=== PATIENT | female | born 1940 | race Caucasian/White ===

== ENCOUNTER 2020-02-25 21:07 | Observation (INO) ==
[2020-02-25] MEDS ORDERED: ACETAMINOPHEN 325 MG TAB PO PRN (22:10)
[2020-02-25] MEDS ORDERED: ONDANSETRON INJ 2 MG/ML 2 ML VIAL IV PRN (22:10)
[2020-02-25] MEDS ORDERED: POLYETHYLENE (MIRALAX) 17 GM PACK PO PRN (22:10)
[2020-02-25] MEDS ORDERED: NITROGLYCERIN SL 0.4 MG/TAB TAB SL PRN (22:10)
[2020-02-25] MEDS: XYZAL~ORDER AWAITING ACTION SCH (22:51)
--- NOTE | 2020-02-25 23:41 | History and Physical Report ---
DATE OF ADMISSION: 02/25/2020 CHIEF COMPLAINT: Bilateral shoulder pain relieved by nitro. HISTORY OF PRESENT ILLNESS: This is a 79-year-old female with past medical history significant for CAD, history of mitral valve repair, chronic kidney disease stage III, depression with anxiety, who went to [facility] today because she woke up with nausea and she also had bilateral shoulder pain. The patient was doing weeding a couple of days ago and yesterday she noticed some soreness in her bilateral shoulders and because of her symptoms of nausea and shoulder pain she was placed on nitro paste, which relieved the shoulder soreness. EKG was unremarkable. Two set of troponins were negative. She was also tested for COVID-19 because she is caring for her who recently had a procedure, and it came back negative, and patient was transferred here for cardiac evaluation. The shoulder soreness resolved with nitro paste. The patient says currently pain is resolved. Seems comfortable. Denies any other complaints. Denies any headache, no blurred vision, but says she uses glasses. No earache, no runny nose, no sore throat, no cough, no difficulty swallowing. No shortness of breath. Currently, no nausea, no abdominal pain. Says she has normal bowel and bladder movements. Denies any blood in the stools. No rash, no swelling in the legs. She says she does not sleep well. She is not eating well because her is on tube feeds and she does not feel like cooking food. She ambulates okay and without any support. ALLERGIES: CIPROFLOXACIN, NITROFURANTOIN, STATINS. PAST MEDICAL HISTORY: As mentioned above. PAST SURGICAL HISTORY: Bladder surgery, bladder sling repair, right ovary removed, mitral valve repair, removal of the bilateral cataract lens. MEDICATIONS: As per [facility]. The patient is on levocetirizine dihydrochloride 5 mg p.o. daily, losartan 50 mg p.o. daily, metoprolol succinate 50 mg p.o. daily, amoxicillin 2 grams 1 hour prior to dental procedures, fish oil 1000 mg p.o. b.i.d., magnesium 400 mg p.o. b.i.d., aspirin 81 mg p.o. daily. FAMILY HISTORY: Significant for brother had colon cancer, [place]; mother had brain tumor; daughter has diabetes. SOCIAL HISTORY: , lives with her . Former smoker, smoked 1 pack a day for 40 years. No alcohol use, no drug use. REVIEW OF SYSTEMS: As per HPI. Rest of review of systems negative. PHYSICAL EXAMINATION: GENERAL: The patient is old and frail, not in acute distress. VITAL SIGNS: Temperature 36.6, pulse 77, respiratory rate 18, blood pressure 178/79, oxygen 97% on room air. HEENT: No pallor, no icterus. Extraocular muscles intact. NECK: No JVD, no neck masses seen, supple. CARDIOVASCULAR: S1, S2 heard, regular rate and rhythm, no murmur, no gallop. RESPIRATORY SYSTEM: Normal AP diameter. No accessory muscle use. No wheezing, no crackles. ABDOMEN: Soft, bowel sounds present, nontender. No distention. CENTRAL NERVOUS SYSTEM: Cranial nerves II-XII grossly intact. Nonfocal. EXTREMITIES: No edema, no erythema. LABORATORY DATA: Labs done at [facility], influenza A and B negative, COVID-19 PCR negative. WBC 8.1, hemoglobin 15, hematocrit 47.7, platelets 205. Sodium 142, potassium 4.1, chloride 104, bicarbonate 31, BUN 8, creatinine 1.1, serum glucose 119, calcium 9.7, total bilirubin 0.4, AST 19, ALT 14, alkaline phosphatase 58, lipase 359, magnesium 2.1. Troponin 1 two sets less than 0.02. UA is unremarkable. EKG: Normal sinus, bradycardia at the rate of 53, no acute ST changes seen. ASSESSMENT AND PLAN: This is a 79-year-old female, who presents with questionable shoulder pain and chest pain. 1. Bilateral shoulder pain , relieved by nitro at [facility]. The patient says she did weeding a couple of days ago and that is why developed the soreness. She went to [facility] because she woke up with nausea.The EKG and troponins are negative. We will observe in tele floor. Serial enzymes, echocardiogram, and keep n.p.o. and consult cardiology in the a.m. for further recommendations. 2. Hypertension. Continue home Toprol-XL and losartan. 3. History of mitral valve repair. Follow echocardiogram. 4. Chronic kidney disease stage III. Baseline creatinine is 0.9. We will follow the labs. 5. Deep venous thrombosis prophylaxis, sequential compression devices. DISPOSITION: Observe in tele floor. PT and OT prior to discharge. Social service to help with discharge planning. Expect to discharge home and follow with family doctor. LIDIA
[2020-02-26 05:16] LABS: Basophils # (auto) 0.03 K/uL (0-0.2); Basophils % (auto) 0.5 %; Eosinophils # (auto) 0.14 K/uL (0-0.5); Eosinophils % (auto) 2.5 %; Hematocrit (blood only) 40.6 % (37-47); Hemoglobin 13.5 g/dL (12.0-16.0); Immature Granulocytes # (auto) 0.01 K/uL (0.00-0.02); Immature Granulocytes % (auto) 0.2 %; Lymphocytes # (auto) 2.22 K/uL (1.2-3.4); Lymphocytes % (auto) 40.3 %; Mean Corpuscular Hemoglobin 30.8 pg (25-34); Mean Corpuscular Hgb Conc 33.3 g/dL (32-36); Mean Corpuscular Volume 92.5 fL (80-100); Mean Platelet Volume 10.6 fL (7.4-10.4); Monocytes # (auto) 0.36 K/uL (0.11-0.59); Monocytes % (auto) 6.5 %; Neutrophils # (auto) 2.75 K/uL (1.4-6.5); Platelet Count 159 K/uL (130-400); RDW Coefficient of Variation 13.9 % (11.5-14.5); RDW Standard Deviation 47.4 fL (36.4-46.3); Red Blood Count 4.39 M/uL (4.2-5.4); White Blood Count 5.51 K/uL (4.8-10.8)
[2020-02-26 05:43] LABS: BUN Creatinine Ratio 9.6 (10-20); Blood Urea Nitrogen 8 mg/dl (7-18); Calcium 9.1 mg/dl (8.5-10.1); Carbon Dioxide 28 mmol/L (21-32); Chloride 111 mmol/L (98-107); Creatinine Clr Calc Pharmacy 50.1 ml/min; Est GFR (African American) 78.9; Est GFR (Non-African American) 68.1; Glucose 86 mg/dl (70-99); Magnesium 1.9 mg/dl (1.8-2.4); Potassium 3.7 mmol/L (3.5-5.1); Sodium 142 mmol/L (136-145)
[2020-02-26 05:47] LABS: Chol HDL Ratio 4; Cholesterol 232 mg/dl (0-200); HDL Cholesterol 54 mg/dl; LDL Cholesterol Calculated 154 mg/dl; Triglycerides 122 mg/dl (0-150); Troponin I < 0.015 ng/ml (0-0.045); VLDL Cholesterol 24 mg/dl
[2020-02-26] MEDS: XYZAL~ORDER AWAITING ACTION SCH (07:55)
--- NOTE | 2020-02-26 08:11 | Cardiology Consultation ---
Date of Consultation February 26, 2020 Assessment & Plan (1) Shoulder pain: (2) S/P MVR (mitral valve repair): Believe the patient's discomfort was noncardiac in origin. She had an echocardiogram this morning which I will review however, her cardiac markers have been negative and her EKG shows no acute changes. I believe the patient can be discharged to outpatient follow-up which I will arrange through our clinic. History of Present Illness Attending Physician: Cynthia Russell MD History of Present Illness This is a 79-year-old female who has been in [place] for the past 5 to 6 years but previously lived in [place] where she had a mitral valve repair completed in 2005. She has been doing well since that surgery and follows with Dr. Martínez through our clinic. He recently saw her and things are going well. The patient was working out in her yard. She was pulling weeds and using a pick ax. Later that evening she developed bilateral shoulder and back discomfort. She went to [facility] emergency department and then was transferred here for further evaluation and care. After admission, her cardiac enzymes are negative. Her EKG shows no acute changes. She has no new cardiac complaints. Her bilateral shoulder and back discomfort are improved. She denies chest pain or shortness of breath. She has had no heart palpitations or tachycardia. Her telemetry has been stable. PAST MEDICAL HISTORY: 1.History of mitral valve repair in 2005 at a hospital in [place], unknown underlying issue. 2.Dyslipidemia with intolerance to all statins. 3.Hypertension. 4.History of anxiety/depression. 5.History of remote tobacco use. Allergies Allergy/AdvReac Type Severity Reaction Status Date / Time ciprofloxacin [From Cipro] AdvReac Unknown Verified 02/25/20 21:57 nitrofurantoin AdvReac Unknown Verified 02/25/20 21:57 [From Macrobid] oxycodone AdvReac Unknown Verified 02/25/20 21:57 Bmlebod-Gzx-Xtv Reductase AdvReac Unknown Verified 02/25/20 21:57 Inhibitor Home Medications Home Medications Medication Instructions Recorded Confirmed Type Aspirin Low Dose 81 mg PO DAILY 02/25/20 02/25/20 History levocetirizine [Xyzal] 5 mg PO DAILY 02/25/20 02/25/20 History losartan 50 mg PO DAILY 02/25/20 02/25/20 History magnesium 400 mg PO BID 02/25/20 02/25/20 History metoprolol succinate [Toprol XL] 50 mg PO DAILY 02/25/20 02/25/20 History Patient History Social History Smoking Status: Never smoker Hx Alcohol Use: No Hx Substance Use: No Preferred Language: Malaysian Communication Ability: Effective Information Analyst Required: No Beliefs That Will Affect Care: None marital status: Current Living Situation: Spouse Other Information That Helps Us Care for You: No Feels Safe at Home: Yes Safety Concerns: Feels Safe At This Time Assistive Devices: None Review of Systems Review of Systems: All systems reviewed & are unremarkable except as noted in HPI & below Nothing additional to add. Physical Exam Physical Exam: General: no acute distress and stated age Head: normocephalic, no masses, lesions, tenderness or abnormalities Eyes: conjunctiva are pink and non-injected, sclera clear Neck: supple, no adenopathy, no bruits, normal jugular venous pulse, no hepatojugular reflux Chest: normal shape and normal respiratory effort Lungs: clear to auscultation and percussion Cardiac Exam: - regular rate & rhythm, no murmurs gallops or rubs - normal S1, normal S2 Pulses: 2(+) throughout Abdomen: abdomen soft, non-tender, no abnormal masses and no hepatosplenomegaly Musculoskeletal: no gait disturbance, no joint inflammation, no deforming arthritis Extremities: no edema and no cyanosis Neuro: grossly normal exam Results & Data ([facility]) Vital Signs (Past 12 Hours) Vital Signs Temp Pulse Pulse Resp BP BP Pulse Ox 02/26/20 07:52 36.6 C 73 18 170/97 H 97 02/26/20 04:00 36.6 C 72 16 165/80 H 96 02/26/20 00:35 62 18 179/77 H 96 02/25/20 23:43 36.4 C L 65 18 157/75 H 97 02/25/20 23:18 36.6 C 70 16 164/74 H 96 02/25/20 21:25 36.6 C 77 18 178/79 H 97 Laboratory Results Laboratory Results - last 24 hr 02/25/20 02/26/20 02/26/20 22:42 04:51 04:51 WBC 5.51 RBC 4.39 Hgb 13.5 Hct 40.6 MCV 92.5 MCH 30.8 MCHC 33.3 RDW Std Deviation 47.4 H RDW Coeff of Wendy 13.9 Plt Count 159 MPV 10.6 H Immature Gran % (Auto) 0.2 Neut % (Auto) 50.0 Lymph % (Auto) 40.3 [place] % (Auto) 6.5 Eos % (Auto) 2.5 Baso % (Auto) 0.5 Neut # (Auto) 2.75 Lymph # (Auto) 2.22 [place] # (Auto) 0.36 Eos # (Auto) 0.14 Baso # (Auto) 0.03 Immature Gran # (Auto) 0.01 Sodium 142 Potassium 3.7 Chloride 111 H Carbon Dioxide 28 Anion Gap 3.0 BUN 8 Creatinine 0.82 Est Cr Clr Drug Dosing 50.1 Est GFR ( Amer) 78.9 Est GFR (Non-Af Amer) 68.1 BUN/Creatinine Ratio 9.6 L Glucose 86 Calcium 9.1 Magnesium 1.9 Troponin I < 0.015 < 0.015 Triglycerides 122 Cholesterol 232 H LDL Cholesterol, Calc 154 VLDL Cholesterol, Calc 24 HDL Cholesterol 54 Cholesterol/HDL Ratio 4 Medications Administered Current Inpatient Medications Acetaminophen (Acetaminophen 325 Mg Tab) 650 mg PO Q4H PRN PRN Reason: Pain or Fever Stop: 03/26/20 22:09 Aspirin (Aspirin 81 Mg Ectab) 81 mg PO DAILY [facility] Stop: 03/27/20 08:59 Last Admin: 02/26/20 08:16 Dose: 81 mg Documented by: Losartan Potassium (Losartan Potassium 50 Mg Tab) 50 mg PO DAILY [facility] Stop: 03/27/20 08:59 Last Admin: 02/26/20 08:17 Dose: 50 mg Documented by: Magnesium Oxide (Magnesium Oxide 400 Mg Tab) 400 mg PO BID [facility]ZY Stop: 03/27/20 08:59 Last Admin: 02/26/20 08:16 Dose: 400 mg Documented by: Metoprolol Succinate (Metoprolol Succ 50mg Ext Rel Tab) 50 mg PO DAILY [facility] Stop: 03/27/20 08:59 Last Admin: 02/26/20 08:16 Dose: 50 mg Documented by: Miscellaneous (Xyzal~Order Awaiting Action) 1 ea N/A QS [facility] Stop: 03/27/20 00:00 Last Admin: 02/26/20 07:55 Dose: Not Given Documented by: Nitroglycerin (Nitroglycerin Sl 0.4 Mg/Tab Tab) 0.4 mg SL UD PRN PRN Reason: Chest Pain Stop: 03/26/20 22:09 Ondansetron HCl (Ondansetron Inj 2 Mg/Ml 2 Ml Vial) 4 mg IV Q6H PRN PRN Reason: Nausea Stop: 03/26/20 22:09 Polyethylene Glycol (Polyethylene (Miralax) 17 Gm Pack) 17 gm PO DAILY PRN PRN Reason: Constipation Stop: 03/26/20 22:09
--- NOTE | 2020-02-26 08:55 | XRay Report ---
XR chest 1V portable CLINICAL HISTORY: Pain radiating to the shoulder COMPARISON STUDY: No previous studies for comparison. FINDINGS: The heart is normal in size. There is a curvilinear density projected over the heart possib ly related to prior valvular surgery. There is no failure. There is no focal pulmonary consolidation. There are no pleural effusions. There is mild interstitial thickening likely chronic[ IMPRESSION: 1. AP portable study 2. No evidence of focal pulmonary consolidation. No evidence of failure. ACT 112: Negative or not required by law. Electronically signed by: Jordan Gomez M.D. 02/26/2020 8:54 AM
[2020-02-26] MEDS ORDERED: METOPROLOL SUCC 50MG EXT REL TAB PO SCH (09:00)
[2020-02-26] MEDS ORDERED: MAGNESIUM OXIDE 400 MG TAB PO SCH (09:00)
[2020-02-26] MEDS ORDERED: LOSARTAN POTASSIUM 50 MG TAB PO SCH (09:00)
[2020-02-26] MEDS ORDERED: ASPIRIN 81 MG ECTAB PO SCH (09:00)
--- NOTE | 2020-02-26 09:52 | Electrocardiogram Report ---
Test Reason : Blood Pressure : / mmHG Vent. Rate : 066 BPM Atrial Rate : 066 BPM P-R Int : 176 ms QRS Dur : 090 ms QT Int : 428 ms P-R-T Axes : 023 018 069 degrees QTc Int : 448 ms Normal sinus rhythm Normal ECG No previous ECGs available Confirmed by Marcell Solorzano ([id number]) on 02/26/2020 9:51:45 AM Referred By: DENEEN BURK Confirmed By:Leonidas Solorzano
--- NOTE | 2020-02-26 09:55 | Electrocardiogram Report ---
Test Reason : Blood Pressure : / mmHG Vent. Rate : 075 BPM Atrial Rate : 075 BPM P-R Int : 176 ms QRS Dur : 084 ms QT Int : 410 ms P-R-T Axes : 024 018 071 degrees QTc Int : 457 ms Sinus rhythm with Premature supraventricular complexes Nonspecific ST and T wave abnormality Abnormal ECG When compared with ECG of 26-FEB-2020 00:31, (unconfirmed) Premature supraventricular complexes are now Present Confirmed by Marcell Solorzano ([id number]) on 02/26/2020 9:55:00 AM Referred By: DENEEN BURK Confirmed By:Leonidas Solorzano
--- NOTE | 2020-02-26 13:12 | Discharge Summary ---
Date of Service February 26, 2020 Admission HPI Per Admitting Provider 79-year-old female with past medical history significant for CAD, history of mitral valve repair, chronic kidney disease stage III, depression with anxiety, who went to [facility] today because she woke up with nausea and she also had bilateral shoulder pain. The patient was doing weeding a couple of days ago and yesterday she noticed some soreness in her bilateral shoulders and because of her symptoms of nausea and shoulder pain she was placed on nitro paste, which relieved the shoulder soreness. EKG was unremarkable. Two set of troponins were negative. She was also tested for COVID-19 because she is caring for her who recently had a procedure, and it came back negative, and patient was transferred here for cardiac evaluation. The shoulder soreness resolved with nitro paste. The patient says currently pain is resolved. Seems comfortable. Denies any other complaints. Denies any headache, no blurred vision, but says she uses glasses. No earache, no runny nose, no sore throat, no cough, no difficulty swallowing. No shortness of breath. Currently, no nausea, no abdominal pain. Says she has normal bowel and bladder movements. Denies any blood in the stools. No rash, no swelling in the legs. She says she does not sleep well. She is not eating well because her is on tube feeds and she does not feel like cooking food. She ambulates okay and without any support. Admission Exam Per Admitting Provider GENERAL: The patient is old and frail, not in acute distress. VITAL SIGNS: Temperature 36.6, pulse 77, respiratory rate 18, blood pressure 178/79, oxygen 97% on room air. HEENT: No pallor, no icterus. Extraocular muscles intact. NECK: No JVD, no neck masses seen, supple. CARDIOVASCULAR: S1, S2 heard, regular rate and rhythm, no murmur, no gallop. RESPIRATORY SYSTEM: Normal AP diameter. No accessory muscle use. No wheezing, no crackles. ABDOMEN: Soft, bowel sounds present, nontender. No distention. CENTRAL NERVOUS SYSTEM: Cranial nerves II-XII grossly intact. Nonfocal. EXTREMITIES: No edema, no erythema. Principal Diagnosis Shoulder pain Discharge Exam Constitutional well nourished and + well hydrated; no acute distress Eyes PERRL, conjunctivae normal, anicteric sclerae ENMT external ear and nose normal, oropharynx normal Respiratory normal respiratory effort, lungs clear to auscultation Cardiovascular RRR, no murmur, no edema Gastrointestinal (Abdomen) normal bowel sounds, soft, nontender, no hepatosplenomegaly Musculoskeletal no cyanosis or clubbing, extremities motor strength 5/5 No tenderness on palpation of chest wall and shoulders Neurologic PERRL, EOMI, accommodation nl, no face palsy, no dysarthria Psychiatric A+Ox3, euthymic affect Discharge Data Allergies Allergy/AdvReac Type Severity Reaction Status Date / Time ciprofloxacin [From Cipro] AdvReac Unknown Verified 02/25/20 21:57 nitrofurantoin AdvReac Unknown Verified 02/25/20 21:57 [From Macrobid] oxycodone AdvReac Unknown Verified 02/25/20 21:57 Hptuigf-Bip-Gsp Reductase AdvReac Unknown Verified 02/25/20 21:57 Inhibitor Consultations 02/25/20 22:10 Consult Case Management - Discharge Planning Routine 02/26/20 08:00 Consult Cardiology Routine Hospital Course (1) Shoulder pain: (2) S/P MVR (mitral valve repair): Musculoskeletal pain, resolved Troponins were negative. EKG was normal, no ischemic changes Echo was unremarkable Continue aspirin, losartan, toprol xl Follow up with PCP and Network Support Specialist Total Time Total Time Spent Total Time Spent (In Minutes): 25 Total Time Includes: Examination of the Patient, Discharge Planning, Medication Reconciliation and Communication With Other Providers Discharge Plan Discharge Items Patient Disposition: Home - Self-Care Reason For Visit: NEW ONSET ANGINA Discharge Diagnosis: Chest pain Activity: Resume your previous activity Non-emergency contact: Primary Care Provider and Network Support Specialist Call non-emergency contact if: you have any medication questions Follow-up/Referrals: Jake Hernandez MD [Primary Care Provider] - 03/05/20 11:00 am Diet: Heart Healthy Addtl Attending Provider Instructions: Ms Harrison. You were transferred from [place] where you presented for soreness in thorax mostly in your shoulder region that was relieved with nitro. You were transferred for further evaluation to rule out any cardiac event. You were evaluated with tests, scans and heart monitoring which does not suggest any cardiac (heart) related event. Please continue to take your medications as prescribed. Please follow up with your Primary Doctor and Network Support Specialist It was a pleasure taking care of you. Pending Studies at Discharge: No Stand-Alone Forms: [facility], Smoking Cessation Medications and DC Order Prescriptions: Continued Aspirin Low Dose 81 mg 81 mg PO DAILY RF: 0 losartan 50 mg Tablet 50 mg PO DAILY RF: 0 metoprolol succinate [Toprol XL] 50 mg Tablet Extended Release 24 Hr 50 mg PO DAILY RF: 0 levocetirizine [Xyzal] 5 mg Tablet 5 mg PO DAILY RF: 0 magnesium 400 mg 400 mg PO BID RF: 0 Discharge Orders: Discharge Order (Routine); Ordered 02/26/20 Ordered By: Cynthia Russell Admission Data Admit Date/Time: 02/25/20 22:04 Attending Provider: Cynthia Russell I. Admit Provider: Sixto Florian Primary Care Provider: Jake Hernandez Other Providers: Crow Martínez ; Frank Ohara ; Shun Jolly ; Kenneth Mendoza ; Terry Lama ; Sly Donovan ; Eliza Rose ; Ginny Richards ; David Vasques ; Sixto Florian Other Interventions: Discharge Summary Assessment (RN) Last Done: 02/26/20 13:24
== END 2020-02-26 13:50 | disposition home or self-care (01) ==
LOC: 2S → SUATTDRO 21:07